=== PATIENT | female | born 1965 | race Caucasian/White ===

== ENCOUNTER 2018-09-08 14:18 | Emergency (ER) | payer OTHER ==
[~2018-09-08] VITALS: Ht 167.6 cm; Wt 52.2 kg
[2018-09-08 14:25] VITALS: BP 135/93
--- NOTE | 2018-09-08 14:26 | NUR ---
PT AMBULATED TO ER BED 06
--- NOTE | 2018-09-08 14:37 | NUR ---
[facility] PT REQUEST FOR CHECKUP D/T WAS FOUND BY FAMILY LAST TUESDAY BEING INCOHERENT AFTER TAKING A DRINK LAST TUESDAY; NO C/O N/V/D, BLACKWELL, DIZZINESS OR PAIN AT THIS TIME. HX; DENIES
--- NOTE | 2018-09-08 14:39 | NUR ---
PT AMBULATED TO BATHROOM AT THIS TIME
[2018-09-08 15:14] LABS: BASOPHILS # (AUTO) 0.1 K/uL (0.00-0.22); BASOPHILS % (AUTO) 0.8 % (0.0-2.0); EOSINOPHILS % (AUTO) 0.7 % (0.0-4.0); HEMATOCRIT 37.9 % (36-48); HEMOGLOBIN 12.9 g/dL (12.0-16.0); LYMPHOCYTES # (AUTO) 1.4 K/uL (2.5-16.5); LYMPHOCYTES % (AUTO) 21.1 % (20.5-51.1); MEAN CORPUSCULAR HEMOGLOBIN 31 pg (27-31); MEAN CORPUSCULAR HGB CONC 34 g/dL (33-37); MEAN CORPUSCULAR VOLUME 91.2 fL (80-94); MONOCYTES # (AUTO) 0.5 K/uL (0.8-1.0); NEUTROPHILS # (AUTO) 4.7 K/uL (1.8-7.7); NEUTROPHILS % (AUTO) 70.4 % (42.2-75.2); PLATELET COUNT (AUTO) 171 K/uL (140-450); RED BLOOD CELL COUNT(AUTO) 4.16 MIL/uL (4.20-5.40); WHITE BLOOD COUNT (AUTO) 6.7 K/uL (4.8-10.8)
[2018-09-08 15:16] LABS: APPEARANCE,URINE CLEAR (CLEAR); BILIRUBIN,URINE SMALL (NEGATIVE); BLOOD, URINE NEGATIVE (NEGATIVE); LEUKOCYTE ESTERASE ,URINE NEGATIVE (NEGATIVE); NITRITE, URINE NEGATIVE (NEGATIVE); UGLUCOSE NEGATIVE (NEGATIVE)
[2018-09-08 15:17] LABS: COLOR,URINE AMBER (YELLOW)
[2018-09-08 15:36] LABS: BARBITURATE, URINE NEG. ng/ml (NEG <=200); BENZODIAZEPINE, URINE NEG. ng/mL (NEG <=200); CANNABINOID, URINE NEG. ng/mL (NEG <=50); COCAINE, URINE NEG. ng/mL (NEG <=300); OPIATE, URINE POS. ng/mL (NEG <=2000); PHENCYCLIDINE SCREEN,URINE NEG. ng/mL (NEG <=25)
[2018-09-08 15:43] LABS: ALBUMIN 3.4 g/dL (3.4-5.0); ANION GAP 8.6 (8-16); CARBON DIOXIDE 35.4 mmol/L (21-32); CREATININE 0.8 mg/dL (0.6-1.3); TOTAL BILIRUBIN 0.5 mg/dL (0.0-1.0)
[2018-09-08] MEDS ORDERED: POTASSIUM CHLORIDE 10 MEQ TABER PO ONE (16:00)
--- NOTE | 2018-09-08 16:18 | NUR ---
Patient discharged with v/s stable. Written and verbal after care instructions given and explained. Patient verbalized understanding. Ambulatory with steady gait. All questions addressed prior to discharge. Advised to follow up with PMD.
[2018-09-08 16:21] VITALS: BP 121/86
== END 2018-09-08 16:18 | disposition home or self-care (01) ==
LOC: MED 14:18
DX: E87.6 Hypokalemia (principal); F17.200 Nicotine dependence, unspecified, uncomplicated; Z13.89 Encounter for screening for other disorder
CPT/HCPCS: 36415; 80053; 80305; 81003; 81025; 85025; 99283